=== PATIENT | male | born 2000 | race Two or more races ===

== ENCOUNTER 2021-06-17 09:20 | Emergency (ER) | payer MEDICAID, OTHER ==
[~2021-06-17] VITALS: Ht 185.4 cm; Wt 104.8 kg
[2021-06-17 09:54] VITALS: BP 124/77
[2021-06-17] MEDS ORDERED: LIDOCAINE 1% HCL (LOCAL ANESTH.) INJ 20ML MDV IJ ONE (11:15)
== END 2021-06-17 11:46 | disposition home or self-care (01) ==
LOC: ER 09:20
DX: S01.81XA Laceration without foreign body of other part of head, initial encounter (principal); S11.91XA Laceration without foreign body of unspecified part of neck, initial encounter; M25.572 Pain in left ankle and joints of left foot; V00.131A Fall from skateboard, initial encounter; Y93.51 Activity, roller skating (inline) and skateboarding; Y92.89 Other specified places as the place of occurrence of the external cause; Y99.8 Other external cause status
CPT/HCPCS: 12015; 70450; 70486; 73610; 99284; J2001